=== PATIENT | female | born 1940 | race Asian ===

== ENCOUNTER 2018-08-07 23:43 | Inpatient (IN) | payer MEDICARE, OTHER ==
[~2018-08-07] VITALS: Ht 162.6 cm; Wt 43.7 kg
[2018-08-07] MEDS ORDERED: NEBI5 PO (23:51)
[2018-08-08] VITALS (18 sets, daily range): BP systolic 135–188; BP diastolic 62–90
[2018-08-08 01:18] LABS: CALCIUM, TOTAL 9.2 mg/dL (8.8-10.5); CREATININE 1.52 mg/dL (0.60-1.30); POTASSIUM 3.3 mmol/L (3.5-5.1)
[2018-08-08 01:26] LABS: MEAN CORPUSCULAR HEMOGLOBIN 20.9 pg (26.0-34.0); MEAN CORPUSCULAR VOLUME 70 fL (80-100); PLATELET COUNT (AUTO) 234 K/uL (150-450); RED BLOOD CELL COUNT(AUTO) 2.66 MIL/uL (4.00-5.20); RED CELL DISTRIBUTION WIDTH 18.8 % (11.5-14.5)
[2018-08-08 01:27] LABS: PROTHROMBIN TIME 10.1 SEC (9.4-11.6)
[2018-08-08 01:30] LABS: HEMOGLOBIN 5.6 g/dL (12.0-16.0)
[2018-08-08 01:31] LABS: HEMATOCRIT 18.5 % (36-46)
[2018-08-08 01:34] LABS: BAND NEUTROPHILS % (MANUAL) 0 % (0-5)
[2018-08-08 01:42] LABS: ALBUMIN 3.1 g/dL (3.4-5.0); BILIRUBIN,TOTAL 0.3 mg/dL (0.1-1.0); TOTAL PROTEIN, SERUM 7.3 g/dL (6.4-8.2)
[2018-08-08 01:45] LABS: EOSINOPHILS % (MANUAL) 1 % (1-6); LYMPHOCYTES % (MANUAL) 14 % (22-44); MONOCYTES % (MANUAL) 6 % (2-9); SEGMENTED NEUTROPHILS % 79 % (40-70)
[2018-08-08] MEDS ORDERED: ACETAMINOPHEN 325 MG TABLET PO PRN ×2 (02:30→06:15)
[2018-08-08] MEDS ORDERED: ONDANSETRON HCL 4 MG/2 ML VIAL IVP PRN (02:30)
[2018-08-08] MEDS ORDERED: 0.9% SODIUM CHLORIDE 10 ML SYRINGE IVP PRN (02:30)
[2018-08-08] MEDS ORDERED: MAGNESIUM HYDROXIDE SUSPENSION 30 ML UDCUP PO PRN (06:15)
[2018-08-08] MEDS ORDERED: SIMV-259 PO (06:28)
[2018-08-08] MEDS ORDERED: OMEP20 PO (06:29)
[2018-08-08] MEDS ORDERED: GLIM2 PO (06:30)
[2018-08-08] MEDS ORDERED: PNEUMOCOCCAL VACCINE POLYVALENT 0.5 ML VIAL [PPSV23] IM ONE (06:30)
[2018-08-08] MEDS: AmLODIPine BESYLATE 5 MG TABLET PO SCH ×2 (06:55→07:48)
[2018-08-08] MEDS ORDERED: PANTOPRAZOLE SODIUM 40 MG/VIAL IVP SCH (09:00)
[2018-08-08] MEDS ORDERED: DOCUSATE SODIUM 100 MG CAPSULE PO SCH (09:00)
[2018-08-08 09:40] LABS: APPEARANCE,URINE CLEAR (CLEAR); BILIRUBIN,URINE NEGATIVE (NEGATIVE); GLUCOSE, URINE (UA) NEGATIVE (NEGATIVE); KETONES,URINE NEGATIVE (NEGATIVE); LEUKOCYTE ESTERASE ,URINE SMALL (NEGATIVE); NITRATE,URINE POSITIVE (NEGATIVE); OCCULT BLOOD,URINE NEGATIVE (NEGATIVE); PROTEIN,URINE NEGATIVE (NEGATIVE); UROBILINOGEN,URINE 0.2 mg/dL (<=1.0)
[2018-08-08 09:58] LABS: BACTERIA,URINE Moderate /HPF (None Seen); RBC,URINE None Seen /HPF (0-2); SQUAMOUS EPITHELIAL CELL,UR Few /LPF (None Seen)
[2018-08-08] MEDS ORDERED: POTASSIUM CHLORIDE 20 MEQ ER TABLET PO ONE (11:00)
[2018-08-08] MEDS ORDERED: AmLODIPine BESYLATE 5 MG TABLET PO ONE (11:00)
[2018-08-08] MEDS ORDERED: CefTRIAXone 1 GM/DEXTROSE 50 ML IV SCH (11:00)
[2018-08-09] MEDS ORDERED: AmLODIPine BESYLATE 5 MG TABLET PO SCH (09:00)
== END 2018-08-08 15:35 | disposition short-term general hospital (02) | DRG 811 ==
LOC: EMS 08-08 00:06 → 5S 08-08 02:30
PROVIDERS: ADMIT Internal Medicine; ATTEND Internal Medicine
PROC: 30233N1 Transfusion of Nonautologous Red Blood Cells into Peripheral Vein, Percutaneous Approach (ICD-10-PCS; principal; 2018-08-08)
DX: D50.9 Iron deficiency anemia, unspecified (principal); I50.33 Acute on chronic diastolic (congestive) heart failure; I13.0 Hypertensive heart and chronic kidney disease with heart failure and stage 1 through stage 4 chronic kidney disease, or unspecified chronic kidney disease; N17.9 Acute kidney failure, unspecified; R64 Cachexia; N39.0 Urinary tract infection, site not specified; E44.0 Moderate protein-calorie malnutrition; Z68.1 Body mass index [BMI] 19.9 or less, adult; N18.9 Chronic kidney disease, unspecified; E78.5 Hyperlipidemia, unspecified; E78.00 Pure hypercholesterolemia, unspecified; E03.9 Hypothyroidism, unspecified; E87.6 Hypokalemia; Z98.82 Breast implant status; Z82.49 Family history of ischemic heart disease and other diseases of the circulatory system; Z79.899 Other long term (current) drug therapy
CPT/HCPCS: 82271; 86850; 86900; 86901; 86920; 87086; 93005; 93306; 96374; C9113; G0378; J0696; P9016

== ENCOUNTER 2018-08-31 22:32 | Emergency (ER) | payer MEDICARE, OTHER ==
[~2018-08-31] VITALS: Ht 152.4 cm; Wt 50.0 kg
[~2018-08-31 22:32] MED LIST: GLIM2 PO; NEBI5 PO; OMEP20 PO; SIMV-259 PO
[2018-08-31 22:49] LABS: GLUCOSE,POINT OF CARE 100 MG/DL (70-110)
[2018-08-31 23:13] LABS: BASOPHILS % (AUTO) 0.8 % (0.0-2.0); EOSINOPHILS % (AUTO) 1.5 % (1.0-6.0); HEMATOCRIT 30.5 % (36-46); HEMOGLOBIN 9.4 g/dL (12.0-16.0); LYMPHOCYTES # (AUTO) 1.3 K/uL (1.0-4.8); LYMPHOCYTES % (AUTO) 31.3 % (22.0-44.0); MEAN CORPUSCULAR HEMOGLOBIN 22.9 pg (26.0-34.0); MEAN CORPUSCULAR HGB CONC 30.9 G/dL (31.0-37.0); MEAN CORPUSCULAR VOLUME 74 fL (80-100); MONOCYTES # (AUTO) 0.3 K/uL (0.1-1.0); MONOCYTES % (AUTO) 8.5 % (2.0-9.0); NEUTROPHILS # (AUTO) 2.3 K/uL (1.8-7.7); NEUTROPHILS % (AUTO) 57.9 % (40.0-70.0); PLATELET COUNT (AUTO) 260 K/uL (150-450); RED BLOOD CELL COUNT(AUTO) 4.12 MIL/uL (4.00-5.20); RED CELL DISTRIBUTION WIDTH 22.7 % (11.5-14.5)
[2018-08-31 23:24] LABS: ALANINE AMINOTRANSFERASE 12 U/L (12-78); ALBUMIN 3.7 g/dL (3.4-5.0); ALKALINE PHOSPHATASE 79 U/L (46-116); ANION GAP 7 mmol/L (8-16); ASPARTATE AMINOTRANSFERASE 24 U/L (15-37); BILIRUBIN,TOTAL 0.6 mg/dL (0.1-1.0); CALCIUM, TOTAL 9.6 mg/dL (8.8-10.5); CARBON DIOXIDE 33 mmol/L (22-29); CHLORIDE 101 mmol/L (98-107); CREATININE 1.42 mg/dL (0.60-1.30); GLOMERULAR FILTR. RATE CALC 36 mL/min (>60); GLUCOSE,RANDOM 108 mg/dL (70-110); SODIUM SERUM 141 mmol/L (136-145); TOTAL PROTEIN, SERUM 8.5 g/dL (6.4-8.2); UREA NITROGEN, BLOOD 17 mg/dL (7-18)
[2018-08-31 23:26] LABS: POTASSIUM 2.9 mmol/L (3.5-5.1)
[2018-08-31 23:32] LABS: APPEARANCE,URINE CLEAR (CLEAR); BILIRUBIN,URINE NEGATIVE (NEGATIVE); GLUCOSE, URINE (UA) NEGATIVE (NEGATIVE); KETONES,URINE NEGATIVE (NEGATIVE); LEUKOCYTE ESTERASE ,URINE NEGATIVE (NEGATIVE); NITRATE,URINE NEGATIVE (NEGATIVE); OCCULT BLOOD,URINE NEGATIVE (NEGATIVE); PH,URINE 7.5 (5.0-8.0); PROTEIN,URINE NEGATIVE (NEGATIVE); UROBILINOGEN,URINE 0.2 mg/dL (<=1.0)
[2018-08-31] MEDS ORDERED: POTASSIUM CHLORIDE 10% 40 MEQ/30 ML LIQUID UDCUP PO ONE (23:45)
[2018-08-31] MEDS ORDERED: LABETALOL HCL 5 MG/ML 20 ML VIAL IVP ONE (23:45)
[2018-09-01] MEDS ORDERED: HydrALAZINE HCL 20 MG/ML VIAL IVP ONE (00:30)
[2018-09-01 01:43] VITALS: BP 151/85
== END 2018-09-01 03:00 | disposition short-term general hospital (02) ==
LOC: EMS 22:33
DX: I10 Essential (primary) hypertension (principal); R41.82 Altered mental status, unspecified; E87.6 Hypokalemia; E11.9 Type 2 diabetes mellitus without complications; E78.00 Pure hypercholesterolemia, unspecified; E03.9 Hypothyroidism, unspecified
CPT/HCPCS: 36415; 70450; 71045; 80053; 81003; 82962; 84484; 85025; 93005; 96374; 96375; 99291; G0480; J0360; J3490